=== PATIENT | male | born 1950 | race Caucasian/White ===

== ENCOUNTER 2020-01-18 08:16 | Day surgery (SDC) | payer MEDICARE ==
[~2020-01-18] VITALS: Ht 185.4 cm; Wt 78.2 kg
[2020-01-18] MEDS ORDERED: SODIUM CHLORIDE 0.9% 1,000 ML IV SCH ×2 (08:54→11:31)
[2020-01-18] MEDS ORDERED: PLEASE ENTER HEIGHT AND WEIGHT MC SCH (09:00)
[2020-01-18] MEDS ORDERED: DIPHENHYDRAMINE 50 MG/ML, 1ML IVPush ONE (09:00)
[2020-01-18] MEDS ORDERED: TIOT4MIS3 INH (09:02)
[2020-01-18] MEDS ORDERED: VITA1CAP PO (09:02)
[2020-01-18] MEDS ORDERED: TRAZ50TA66 PO (09:02)
[2020-01-18] MEDS ORDERED: HYDR25CA94 PO (09:02)
[2020-01-18] MEDS ORDERED: ALBU18HF INH (09:02)
[2020-01-18] MEDS ORDERED: TELM1TAB2 PO (09:02)
[2020-01-18] MEDS ORDERED: ASPI81TA45 PO (09:03)
[2020-01-18 09:07] VITALS: BP 134/79
[2020-01-18] MEDS ORDERED: DIPHENHYDRAMINE 50 MG/ML, 1ML ONE (09:14)
[2020-01-18 09:50] LABS: BASOPHILS # (AUTO) 0.05 x10^3/uL (0-0.1); BASOPHILS % (AUTO) 1 % (0-1); EOSINOPHILS # (AUTO) 0.04 x10^3/uL (0-0.4); EOSINOPHILS % (AUTO) 1 % (1-7); LYMPHOCYTES # (AUTO) 0.84 x10^3/uL (1-3.4); LYMPHOCYTES % (AUTO) 14 % (22-44); MD NO; MEAN CORPUSCULAR HEMOGLOBIN 33.7 pg (27.5-34.5); MEAN CORPUSCULAR HGB CONC 34.3 g/dL (33.2-36.2); MEAN CORPUSCULAR VOLUME 98.1 fL (81-97); MEAN PLATELET VOLUME 6.8 fL (7.4-10.4); MONOCYTES # (AUTO) 0.64 x10^3/uL (0.2-0.8); MONOCYTES % (AUTO) 11 % (2-9); NEUTROPHILS % (AUTO) 74 % (42-75); PLATELET COUNT 366 x10^3/uL (130-400); RED CELL DISTRIBUTION WIDTH 12.2 % (9.4-14.8)
[2020-01-18 10:02] LABS: INTERNATIONAL NORMALIZED RATIO 0.91 (0.93-1.1); PROTHROMBIN TIME 9.6 Seconds (9.6-11.5)
[2020-01-18 10:04] LABS: ANION GAP 6 mmol/L (5-15); CALCIUM 8.2 mg/dL (8.5-10.1); CHLORIDE 104 mmol/L (98-107)
[2020-01-18] MEDS ORDERED: LIDOCAINE-MPF 1%, 5ML ONE (10:35)
[2020-01-18] MEDS ORDERED: FENTANYL PF 100 MCG/2ML ONE (10:35)
[2020-01-18] MEDS ORDERED: VERAPAMIL 2.5 MG/ML, 2ML ONE (10:35)
[2020-01-18] MEDS ORDERED: MIDAZOLAM 1 MG/ML, 5ML ONE (10:35)
[2020-01-18] MEDS ORDERED: HEPARIN 1,000 UNITS/ML, 10ML ONE (10:36)
[2020-01-18] MEDS ORDERED: ATOR20TA37 PO (12:34)
== END 2020-01-18 14:27 | disposition home or self-care (01) ==
LOC: CACL 08:16
PROVIDERS: ATTEND Internal Medicine Cardiovascular Disease
DX: R07.9 Chest pain, unspecified (principal); I25.110 Atherosclerotic heart disease of native coronary artery with unstable angina pectoris; I10 Essential (primary) hypertension; E78.5 Hyperlipidemia, unspecified; J44.9 Chronic obstructive pulmonary disease, unspecified; Z79.899 Other long term (current) drug therapy; Z87.891 Personal history of nicotine dependence
CPT/HCPCS: 36415; 80048; 85025; 85610; 93456; 99156; 99157; C1769; C1894; J1200; J1644; J2250; J3010; J7030; Q9967

== ENCOUNTER → 2020-08-10 | Outpatient (CLI) | payer MEDICARE ==
[~2020-08-10] MED LIST: ALBU18HF INH; ASPI81TA45 PO; ATOR20TA37 PO; HYDR25CA94 PO; TELM1TAB2 PO; TIOT4MIS3 INH; TRAZ50TA66 PO; VITA1CAP PO
== END | disposition home or self-care (01) ==
LOC: CFH 09:33
PROVIDERS: ATTEND Family Medicine
DX: J34.2 Deviated nasal septum (principal); K13.79 Other lesions of oral mucosa; J39.2 Other diseases of pharynx; J32.9 Chronic sinusitis, unspecified
CPT/HCPCS: 70486